=== PATIENT | male | born 1995 | race Caucasian/White ===

== ENCOUNTER 2020-06-16 07:57 | Emergency (ER) | payer MEDICAID ==
[~2020-06-16] VITALS: Ht 190.5 cm; Wt 90.7 kg
--- NOTE | 2020-06-16 08:02 | Emergency Room Report ---
History of Present Illness General Chief Complaint: To Be Triaged Source: Patient Present Illness HPI 25-year-old male PMHx hep C presents with atraumatic low back pain. Pt states the pain came on while sitting at work at his desk yesterday. Denies hematuria, flank pain, fever, melena, hematochezia, n/v/d, or migration of pain. Pain is located where his hips and his spine attach. States he has been doing repetitive anterior lunges. Denies midline back pain, step-off, IV drug use, urinary retention, bowel or bladder incontinence, saddle anesthesia. The patient's symptoms were gradual onset, severity was moderate, duration since 1 day. Quality: Aching Better with Motrin and Tylenol at home. Is also requesting to empirically be treated for UTI. Denies penile discharge, lesions, scrotal or testicular pain, or abdominal pain Past medical history: Hepatitis C Past surgical history: Denies Smoking: Denies Alcohol use: Denies Drug use: Denies Review of systems: CONST: No fevers or chills, No night sweats PULMONARY: No productive cough, No shortness of breath CARDIAC: No chest pain, No palpitations GI: No vomiting, No diarrhea , No melena_or_BRBPR : No dysuria, No hematuria, No discharge NEURO: No new_focal_weakness_or_numbness, No confusion, No vision changes 14 point Review of Systems is otherwise negative except per HPI Physical Exam: GENERAL: Awake_alert_ nontoxic, no acute distress Spo2 98% on RA -normal EYES: Extraocular muscles are intact. Conjunctivae clear. Lids without swelling ENT: External nose and ear normal_in_appearance. Oropharynx clear. Head_ atraumatic, Moist_oral_mucosa NECK: No JVD. No meningismus. No thyromegaly. Supple. Trachea midline RESP: Normal respiratory effort. Symmetric rise. No stridor. Clear_to_ auscultation_No_rales_No_wheezes CARDIAC: Regular rate and regular rhytm. No_significant pedal edema. ABDOMEN: Soft. Nondistended. Nontender_No_rebound_or_guarding. MSK: Normal muscle tone, without rigidity. Extremities without asymmetric deformity or swelling. No midline cervical, thoracic, lumbar spinal tenderness to palpation. No step- offs. No deformity. Pain with palpation of the lumbosacral junction bilaterally. No midline pain. Full range of motion of the bilateral lower extremity and hip/knee/ankle flexion , extension, internal, and external rotation. No saddle anesthesia. No pallor SKIN: Warm and dry. No visible cyanosis or pallor NEUROLOGIC: Alert, oriented x3. Motor_and_sensation_grossly_intact. No truncal ataxia. Gait_normal Psych: Normal mood and affect, normal judgment and insight - COORDINATION OF CARE Case was discussed with: Patient Any labs that were ordered were interpreted as part of the medical decision making: Medical Decision Making/Plan: Differential diagnosis includes musculoskeletal pain, muscle spasm / sprain, vertebral fracture, spinal epidural abscess, spinal epidural hematoma, pyelonephritis, kidney stone, AAA, among others. Vitals are unremarkable. Patient is afebrile. No midline tenderness. On exam, pulses are equal and symmetric bilaterally. No focal neurologic deficits noted. No midline spinal step offs or deformities appreciated. The patient has no significant red flags on history or exam. The patient has no significant risk factors for AAA (abdominal aortic aneurysm) such as age over 50 with history of hypertension, connective tissue disorder, or 1st degree relative with AAA. In addition, the patient has normal dorsalis pedis pulses, and no pulsatile mass felt on exam. The patients profile was overall low risk for AAA and definitive workup was not pursued. Patient has no history of malignancy, active or distant history. Patient has no B symptoms: no unintentional weight loss, night sweats, or fevers. No longstanding steroid or other immunosuppressant usage. No mechanism for significant trauma. Patient has no vertebral deformity or midline tenderness and has a normal gait. Patient has no significant risk factors for spinal epidural emergency such as fever, IVDU, HIV, or anticoagulant use. Patient is neurologically intact without any lower extremity weakness / numbness, saddle anesthesia, urinary retention or fecal incontinence. No evidence of any emergent process of the spinal cord or cauda equina at this time. The patients symptoms appear consistent with a musculoskeletal origin. Also states that when he was younger he was told that he has an anterior tilt of his pelvis, therefore it is likely that the anterior squats that he has been doing at the gym have been aggravating this. I have educated him on stretching exercises. ED intervention included Toradol with full relief of symptoms. He is also empirically treated for gonorrhea and chlamydia. He was instructed not to drink alcohol for least 1 week. Urinalysis was clean. No hematuria noted. The patient was counseled that they need to see their primary medical doctor in the next 1-2 days for reevaluation and further treatment, and to return immediately if symptoms change or worsen. Pertinent results reviewed with the patient. I educated the patient on the current treatment plan including the risks, benefits, and alternatives. I also discussed the extent and limitations of the current evaluation. The patient expressed understanding and agreement with plan. I recommended PMD follow-up within 1-2 days. Also advised that the patient return to the Emergency Department as soon as possible if they experience any new, persistent, or worsening symptoms. Allergies: Coded Allergies: No Known Allergies (Unverified , 06/16/20) Physical Exam Sp02 EP Interpretation: reviewed, normal Medical Decision Making Diagnostic Impression: Primary Impression: Back pain Disposition: HOME, SELF-CARE Admit Decision Time: 08:56 Condition: Stable Scripts Methocarbamol* (ROBAXIN-750*) 750 Mg Tablet 750 MG PO QID, #28 TAB 0 Refills Prov: Nuria Stoddard D.O. 06/16/20 Ibuprofen* (MOTRIN*) 600 Mg Tablet 600 MG ORAL Q6H PRN for FOR PAIN, #20 TAB 0 Refills Prov: Nuria Stoddard D.O. 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 Follow-up with your doctor sooner if your condition requires a more timely clinical reevaluation. Return to the emergency department immediately if you feel that your condition is worsening or if you have any new or concerning symptoms. Review your discharge instructions and take any prescriptions given as instructed. Nuria Stoddard D.O. Jun 16, 2020 08:02
[2020-06-16] MEDS ORDERED: IBUPROFEN600 M1 ORAL (08:03)
[2020-06-16] MEDS ORDERED: ROBAXIN-750750 MG PO (08:03)
[2020-06-16] MEDS ORDERED: Lidocaine 1% MPF 10mg/ml 5ml INJ ONE (08:30)
[2020-06-16] MEDS ORDERED: Azithromycin 250mg tab ORAL ONE (08:30)
[2020-06-16] MEDS ORDERED: Ketorolac 30mg Inj IM ONE (08:30)
[2020-06-16 08:32] LABS: APPEARANCE,URINE CLEAR; BILIRUBIN, URINE NEGATIVE (NEGATIVE); GLUCOSE, URINE (UA) NEGATIVE (NEGATIVE); KETONES,URINE NEGATIVE (NEGATIVE); LEUKOCYTE ESTERASE ,URINE NEGATIVE (NEGATIVE); NITRITE,URINE NEGATIVE (NEGATIVE); PH,URINE 6 (4.5-8.0); PROTEIN,URINE NEGATIVE (NEGATIVE); UROBILINOGEN,URINE NORMAL MG/DL (0.0-1.0)
[2020-06-16 08:51] LABS: COLOR,URINE YELLOW
[2020-06-16 09:05] VITALS: BP 115/76
== END 2020-06-16 09:00 | disposition home or self-care (01) ==
LOC: EMR 08:59
DX: M54.5 Low back pain (principal); Z86.19 Personal history of other infectious and parasitic diseases
CPT/HCPCS: 81001; 96372; 96374; J0696; J1885; Q0144; Z7502; 99284

== ENCOUNTER → 2020-08-14 20:40 | Emergency (ER) | payer SELFPAY ==
[~2020-08-14] VITALS: Ht 188 cm; Wt 88.5 kg
[2020-08-14 20:35] VITALS: BP 111/80
[~2020-08-14 20:40] MED LIST: IBUPROFEN600 M1 ORAL; ROBAXIN-750750 MG PO
--- NOTE | 2020-08-14 21:51 | Emergency Room Report ---
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 Refused to be evaluated Last Vital Signs Date Time Temp Pulse Resp B/P (MAP) Pulse Ox O2 Delivery O2 Flow Rate FiO2 08/14/20 20:35 98.2 95 22 111/80 (90) 95 Room Air Status: improved Disposition: LEFT W/OUT BEING SEEN Condition: Stable Referrals: NOT CHOSEN IPA/,REFERRING (PCP) Gerardo Tong MD Aug 14, 2020 21:51
== END | disposition left against medical advice (07) ==
LOC: EDUNIT# 20:34 → EDBD 20:40 → EMR 20:40
DX: Z53.21 Procedure and treatment not carried out due to patient leaving prior to being seen by health care provider (principal)